=== PATIENT | female | born 1955 | race Two or more races ===

== ENCOUNTER 2024-06-09 10:38 | Emergency (ER) | payer OTHER, MEDICAID ==
[~2024-06-09] VITALS: Ht 167.6 cm; Wt 76.9 kg
[2024-06-09 10:38] VITALS: TEMP 97.5
[2024-06-09 11:23] VITALS: PULSE 69; RESP 18; O2SAT 96
[2024-06-09] MEDS: ACETAMINOPHEN 500 MG TAB PO ONE (11:52)
[2024-06-09 12:23] VITALS: BP 128/61; PULSE 63; RESP 18; O2SAT 98
[2024-06-09] MEDS ORDERED: TRAM-626 PO (12:28)
== END 2024-06-09 12:24 | disposition home or self-care (01) ==
LOC: ER 10:47
DX: S22.41XA Multiple fractures of ribs, right side, initial encounter for closed fracture (principal); I10 Essential (primary) hypertension; E11.9 Type 2 diabetes mellitus without complications; W18.39XA Other fall on same level, initial encounter; Y93.01 Activity, walking, marching and hiking; Y92.89 Other specified places as the place of occurrence of the external cause; Y99.8 Other external cause status
CPT/HCPCS: 71101